=== PATIENT | female | born 1995 | race American Indian/Alaskan Native ===

== ENCOUNTER 2020-07-31 13:35 | Emergency (ER) | payer SELFPAY ==
--- NOTE | 2020-07-31 15:59 | Event Note ---
ED Screening Note Date of service: 07/31/20 Time: 15:56 ED Screening Note: 25-year-old morbid obese -[place] female presents to the emergency room concern for a blood clot to her left thigh. Patient reports she has had bruising to her lower calf and now a bruise on her upper leg. Patient does not recall hitting her leg or any trauma. Patient states that it feels like her leg is swollen. This initial assessment/diagnostic orders/clinical plan/treatment(s) is/are subject to change based on patients health status, clinical progression and re- assessment by fellow clinical providers in the ED. Further treatment and workup at subsequent clinical providers discretion. Patient/guardian urged not to elope from the ED as their condition may be serious if not clinically assessed and managed. Initial orders include:
[2020-07-31 16:28] LABS: Basophils % (Auto) 0.8 % (0.0-1.8); Eosinophils # (Auto) 0.1 K/mm3 (0.0-0.4); Eosinophils % (Auto) 1.3 % (0.0-4.3); Hematocrit 40.5 % (30.3-42.9); Hemoglobin 13.8 gm/dl (10.1-14.3); Lymphocytes % (Auto) 30.7 % (13.4-35.0); Mean Corpuscular HGB Conc 34 % (30-34); Mean Corpuscular Volume 96 fl (79-97); Monocytes # (Auto) 0.4 K/mm3 (0.0-0.8); Monocytes % (Auto) 5.9 % (0.0-7.3); Platelet Count 282 K/mm3 (140-440); Red Blood Count 4.22 M/mm3 (3.65-5.03); Red Cell Distribution Width 12.6 % (13.2-15.2)
[2020-07-31 16:38] LABS: INR 0.95 (0.87-1.13)
[2020-07-31 16:39] LABS: Partial Thromboplastin Time 29.1 Sec. (24.2-36.6)
[2020-07-31] MEDS ORDERED: CYCLOBENZAPRINE 10 MG TAB PO ONE (19:25)
[2020-07-31] MEDS ORDERED: predniSONE 20 MG TAB PO ONE (19:25)
[2020-07-31] MEDS ORDERED: IBUPROFEN 600 MG TAB PO ONE (19:25)
--- NOTE | 2020-07-31 20:06 | Emergency Department Report ---
ED Back Pain/Injury HPI - General Chief Complaint: Extremity Problem,Nontraumatic Stated Complaint: LT THIGH PAIN (POSSIBLE BLOOD CLOT) Time Seen by Provider: 07/31/20 15:55 Source: patient Limitations: No Limitations - History of Present Illness Initial Comments: Patient is a 25-year-old -[place] female with a history of obesity and chronic low back pain and sciatica presents to the ED with complaint of acute exacerbation of her chronic low back pain that radiates to the left hip and left leg intermittently for the last 3 months, worse in the last 2 days. Patient states that her job entails heavy lifting as well and that she is always on her feet. Patient states that in the last 2 days, the pain in the low back and left hip have worsened especially with movement or ambulation. Patient states that she can hardly bear weight on the left leg because of worsening pain. Patient denies fall, traumatic injury, dizziness, syncope, chest pain, shortness of breath, nausea and vomiting, heavy lifting, dysuria, urinary frequency and urgency, fever and chills, numbness and tingling or weakness of lower extremities bilaterally. MD Complaint: back pain (lower back pain), other (low back pain that radiates to the left hip and leg) -: Gradual, month(s) (6) Similar Symptoms Previously: Yes (chronic low back pain) Place: home Radiation: left leg Severity: severe Severity scale (0 -10): 8 Quality: sharp, aching Consistency: constant Improves With: none Worsens With: movement, sitting upright, walking Context: while lifting, turning/twisting Associated Symptoms: denies other symptoms. denies: confusion, weakness, chest pain, numbness, difficulty walking, cough, difficulty urinating, diaphoresis, incontinence, fever/chills, constipation, headaches, loss of appetite, malaise, nausea/vomiting, rash, seizure, shortness of breath, syncope, other - Related Data Previous Rx's Medication Instructions Recorded Last Taken Type Naproxen 500 mg PO Q12H PRN #30 tablet 07/31/20 Unknown Rx methOCARBAMOL [Robaxin TAB] 750 mg PO Q8H PRN #30 tablet 07/31/20 Unknown Rx predniSONE [Deltasone] 60 mg PO QDAY #15 tab 07/31/20 Unknown Rx traMADoL [Ultram] 50 mg PO Q6HR PRN #12 tablet 07/31/20 Unknown Rx Allergies Allergy/AdvReac Type Severity Reaction Status Date / Time No Known Allergies Allergy Unverified 07/31/20 14:15 ED Review of Systems ROS: Stated complaint: LT THIGH PAIN (POSSIBLE BLOOD CLOT) Other details as noted in HPI Constitutional: denies: chills, fever Eyes: denies: eye pain, eye discharge, vision change ENT: denies: ear pain, throat pain Respiratory: denies: cough, shortness of breath, wheezing Cardiovascular: denies: chest pain, palpitations Endocrine: no symptoms reported Gastrointestinal: denies: abdominal pain, nausea, diarrhea Genitourinary: denies: urgency, dysuria, discharge Musculoskeletal: back pain (Low back pain that radiates to the left hip and left leg), arthralgia (Left hip and left knee pain), myalgia. denies: joint swelling Skin: denies: rash, lesions Neurological: denies: headache, weakness, paresthesias Psychiatric: anxiety. denies: depression Hematological/Lymphatic: denies: easy bleeding, easy bruising ED Past Medical Hx - Past Medical History Previous Medical History?: No - Surgical History Past Surgical History?: No - Medications Home Medications: Home Medications Medication Instructions Recorded Confirmed Last Taken Type Naproxen 500 mg PO Q12H PRN #30 tablet 07/31/20 Unknown Rx methOCARBAMOL [Robaxin TAB] 750 mg PO Q8H PRN #30 tablet 07/31/20 Unknown Rx predniSONE [Deltasone] 60 mg PO QDAY #15 tab 07/31/20 Unknown Rx traMADoL [Ultram] 50 mg PO Q6HR PRN #12 tablet 07/31/20 Unknown Rx ED Physical Exam - General Limitations: No Limitations General appearance: alert, in no apparent distress - Head Head exam: Present: atraumatic, normocephalic, normal inspection - Eye Eye exam: Present: normal appearance, PERRL, EOMI Pupils: Present: normal accommodation - ENT ENT exam: Present: normal exam, normal orophraynx, mucous membranes moist, TM's normal bilaterally, normal external ear exam - Neck Neck exam: Present: normal inspection, full ROM - Respiratory Respiratory exam: Present: normal lung sounds bilaterally. Absent: respiratory distress, wheezes, rales, stridor, chest wall tenderness, accessory muscle use, decreased breath sounds, prolonged expiratory - Cardiovascular Cardiovascular Exam: Present: regular rate, normal rhythm, normal heart sounds. Absent: systolic murmur, diastolic murmur, rubs, gallop - GI/Abdominal GI/Abdominal exam: Present: soft, normal bowel sounds. Absent: distended, tenderness, guarding, rebound, hyperactive bowel sounds, organomegaly, mass - Extremities Exam Extremities exam: Present: normal inspection, full ROM, tenderness (Palpable left knee and left hip joint tenderness), normal capillary refill - Back Exam Back exam: Present: normal inspection, full ROM, tenderness (Palpable lumbosacral paraspinal musculoskeletal tenderness), muscle spasm, paraspinal tenderness. Absent: CVA tenderness (L) - Neurological Exam Neurological exam: Present: alert, oriented X3, CN II-XII intact, normal gait, reflexes normal - Psychiatric Psychiatric exam: Present: normal affect, normal mood - Skin Skin exam: Present: warm, dry, intact, normal color. Absent: rash ED Course Vital Signs 07/31/20 14:15 Temperature 98.5 F Pulse Rate 73 Respiratory 16 Rate Blood Pressure 119/58 [Right] O2 Sat by Pulse 97 Oximetry ED Medical Decision Making - Lab Data Result diagrams: 07/31/20 16:10 - Medical Decision Making This is a 25-year-old -[place] female with a history of obesity and chronic low back pain and sciatica presents to the ED with complaint of acute exacerbation of her chronic low back pain that radiates to the left hip and left leg intermittently for the last 3 months, worse in the last 2 days. Patient states that her job entails heavy lifting as well and that she is always on her feet. Patient states that in the last 2 days, the pain in the low back and left hip have worsened especially with movement or ambulation. Patient states that she can hardly bear weight on the left leg because of worsening pain. In the ED, patient is alert and oriented x3 and is not in any distress but appears to be in pain and anxious during triage and during the physical exam. Patient is however hemodynamically stable. Lab test results were reviewed and are all nonactionable. Patient was treated for pain in the ED and based on the physical exam findings and the history, patient symptoms are likely due to muscle strain of left leg or chronic low back pain with sciatica on the left leg. Patient was therefore discharged home on medications and advised to follow-up with her primary care physician in 5 to 7 days for reevaluation or return to the ED immediately if symptoms get worse. - Differential Diagnosis Muscle spasm; muscle strain; hip bursitis; sciatica; chronic back pain Critical care attestation.: If time is entered above; I have spent that time in minutes in the direct care of this critically ill patient, excluding procedure time. ED Disposition Clinical Impression: Spasm of muscle of lower back Chronic low back pain with left-sided sciatica Qualifiers: Back pain laterality: left Qualified Code(s): M54.42 - Lumbago with sciatica, left side; G89.29 - Other chronic pain Muscle strain of left lower extremity Qualifiers: Encounter type: initial encounter Qualified Code(s): S86.912A - Strain of unspecified muscle(s) and tendon(s) at lower leg level, left leg, initial en counter Bursitis of left hip Qualifiers: Hip bursitis location: unspecified Qualified Code(s): M70.72 - Other bursitis of hip, left hip Disposition: TO HOME OR SELFCARE Is pt being admited?: No Does the pt Need Aspirin: No Condition: Stable Instructions: Muscle Cramps and Spasms, [id number], Hip Bursitis, [id number], Chronic Back Pain Additional Instructions: Based on your history and physical exam findings, the symptoms are likely due to nerve impingement on your lower back that radiates pain to your left hip and left leg consistent with lumbar radiculopathy or sciatica. Left hip bursitis as well as muscle strain and degenerative joint disease cannot be ruled out either. Therefore take medication with food, drink plenty of fluids and follow- up with your primary care physician in 5 to 7 days for reevaluation. Return to the ED immediately if symptoms get worse. Prescriptions: predniSONE [Deltasone] 60 mg PO QDAY #15 tab Naproxen 500 mg PO Q12H PRN #30 tablet PRN Reason: Pain , Severe (7-10) methOCARBAMOL [Robaxin TAB] 750 mg PO Q8H PRN #30 tablet PRN Reason: Muscle Spasm traMADoL [Ultram] 50 mg PO Q6HR PRN #12 tablet PRN Reason: Pain Referrals: [facility] [Provider Group] - 3-5 Days Forms: Work/School Release Form(ED) Time of Disposition: 20:11 Print Language: [id number]
[2020-07-31 21:22] VITALS: BP 175/94
== END 2020-07-31 21:25 | disposition home or self-care (01) ==
LOC: ED 13:35
DX: S86.912A Strain of unspecified muscle(s) and tendon(s) at lower leg level, left leg, initial encounter (principal); M54.42 Lumbago with sciatica, left side; G89.29 Other chronic pain; M70.72 Other bursitis of hip, left hip; M62.830 Muscle spasm of back; E66.9 Obesity, unspecified; Z79.899 Other long term (current) drug therapy; Z68.41 Body mass index [BMI] 40.0-44.9, adult; X50.0XXA Overexertion from strenuous movement or load, initial encounter; Y93.89 Activity, other specified; Y92.89 Other specified places as the place of occurrence of the external cause; Y99.0 Civilian activity done for income or pay
CPT/HCPCS: 36415; 85025; 85610; 85730; 99283; J7512